=== PATIENT | female | born 1945 | race Caucasian/White ===

== ENCOUNTER 2016-10-23 05:34 | Day surgery (SDC) | payer BC ==
[2016-10-23] MEDS ORDERED: LIDO/EPI 1% **Not for Epidural 20 ML MDV ONE (06:47)
[2016-10-23] MEDS ORDERED: MIDAZOLAM 2 MG/2 ML VIAL ONE ×5 (07:08→07:50)
[2016-10-23] MEDS ORDERED: fentaNYL 100 MCG/2 ML INJ ONE ×2 (07:08)
[2016-10-23] MEDS ORDERED: LIDOCAINE 1% 30 ML SDV ONE (07:13)
--- NOTE | 2016-10-23 09:09 | GOP ---
[f rep st] OPERATIVE REPORT DATE OF OPERATION: 10/23/2016 SURGEON: Negin Turner MD ANESTHESIA: She had a MAC with [employer]. ANESTHESIOLOGIST: Hadley Curry MD. PREOPERATIVE DIAGNOSIS: 1. Postmenopausal bleeding. 2. Thickened endometrial stripe. 3. Suspicious for uterine polyps. POSTOPERATIVE DIAGNOSIS: 1. Postmenopausal bleeding. 2. Thickened endometrial stripe. 3. Suspicious for uterine polyps. PROCEDURE PERFORMED: Hysteroscopic evaluation with likely polypectomy and dilation and curettage, a nd also a hysteroscopic polypectomy of the cervix. FINDINGS: 2-3 endometrial polyps and 1 cervical polyp and thick endometrial tissue. ESTIMATED BLOOD LOSS: Minimal. INDICATIONS: Patient is a 71-year-old who is on hormone therapy and takes a little progesterone but does have cyclic bleeding on the progesterone and recently has had very heavy bleeding. An ultraso und showed a very thick endometrial stripe. Recommend hysteroscopic evaluation with resection of th e tissue. DESCRIPTION OF PROCEDURE: With informed consent signed, patient was taken to the operating room and placed under anesthesia without complication, placed in a low dorsal lithotomy position, and preppe d and draped in the usual sterile fashion and bladder previously emptied. A tenaculum was placed on anterior lip of the cervix. The cervix dilated to 9 mm. A hysteroscope placed using normal saline as a filling medium and findings as noted above. Resection of the tissue done without complication . Fluid deficit was 380. The patient awakened in the operating room and taken to the recovery room in stable condition. Tolerated the procedure well. COMPLICATIONS: None. /[id number]/MODL
== END 2016-10-23 09:50 | disposition home or self-care (01) ==
LOC: FSGY 05:34
PROVIDERS: ATTEND Obstetrics & Gynecology Gynecology
PROC: 0UB98ZZ Excision of Uterus, Via Natural or Artificial Opening Endoscopic (ICD-10-PCS; principal; 2016-10-23 07:15)
PROC: 0UBC8ZX Excision of Cervix, Via Natural or Artificial Opening Endoscopic, Diagnostic (ICD-10-PCS; principal; 2016-10-23 07:15)
DX: N84.0 Polyp of corpus uteri (principal); R93.8 Abnormal findings on diagnostic imaging of other specified body structures
CPT/HCPCS: 58558; C1782; J2250; J3010